=== PATIENT | male | born 1980 | race Caucasian/White ===

== ENCOUNTER → 2016-05-21 | Outpatient (CLI) | payer BC ==
[~2016-05-21] MED LIST: CIPRO 500MG TA500 MG PO; FISH OIL 1000MG1 CAP PO; FLOMAX 0.40.4 MG/CAP PO; FLONASEALLERGY NS; GLUCOPHAGE1000 MG PO; JANUVIA 100MG100 MG PO; NORCO 325 MG-51 TAB PO; OMEGA-31 SGL PO; PERCOCET 325 MG1 TA2 PO; UROCIT-K 5540 MG/TAB PO; ZOCOR 10MG10 MG PO
== END ==
LOC: COL.RAD 09:14
DX: N20.0 Calculus of kidney (principal)

== ENCOUNTER → 2016-05-25 | Day surgery (SDC) | payer BC ==
[~2016-05-25] VITALS: Ht 175.3 cm; Wt 126.3 kg
[2016-05-25] VITALS (7 sets, daily range): BP systolic 124–153; BP diastolic 72–97; PULSE 76–92; TEMP 97.6–97.7
== END ==
LOC: SDCO 11:35
DX: N20.0 Calculus of kidney (principal); R10.12 Left upper quadrant pain; R31.0 Gross hematuria; E11.9 Type 2 diabetes mellitus without complications; F17.210 Nicotine dependence, cigarettes, uncomplicated
CPT/HCPCS: C1769; C1894; C2617; J0690; J1100; J2704; J3010; J7030; Q9967

== ENCOUNTER → 2016-06-11 | Outpatient (CLI) | payer BC | LOC: COL.RAD 07:30 | DX: N20.0 Calculus of kidney (principal) ==

== ENCOUNTER 2016-06-24 12:13 | Day surgery (SDC) | payer BC ==
[~2016-06-24] VITALS: Ht 175.3 cm; Wt 122.4 kg
[~2016-06-24 12:13] MED LIST changes: -FLOMAX 0.40.4 MG/CAP PO; -PERCOCET 325 MG1 TA2 PO; -UROCIT-K 5540 MG/TAB PO
[2016-06-24] MEDS ORDERED: FLOMAX 0.40.4 MG/CAP PO (12:48)
[2016-06-24] MEDS ORDERED: UROCIT-K 5540 MG/TAB PO (12:49)
[2016-06-24 13:15] VITALS: BP 126/82; PULSE 80; TEMP 98.2
[2016-06-24 17:33] VITALS: BP 144/92; PULSE 84; TEMP 98
[2016-06-25] MEDS ORDERED: PERCOCET 325 MG1 TA2 PO (07:57)
== END 2016-06-24 19:03 | disposition home or self-care (01) ==
LOC: SDCO 12:13 → SURG 17:25 → SDCO 19:03
DX: N20.0 Calculus of kidney (principal); E11.9 Type 2 diabetes mellitus without complications; Z79.84 Long term (current) use of oral hypoglycemic drugs; F17.210 Nicotine dependence, cigarettes, uncomplicated
CPT/HCPCS: OP; C1769; C1894; J0690; J1100; J1170; J1885; J1940; J2270; J2405; J2704; J3010; J7030

== ENCOUNTER 2016-06-24 21:08 | Observation (INO) | payer BC ==
[~2016-06-24 21:08] MED LIST changes: +FLOMAX 0.40.4 MG/CAP PO; +UROCIT-K 5540 MG/TAB PO
[2016-06-24 22:04] VITALS: BP 152/85; PULSE 81
[2016-06-24 22:34] VITALS: BP 125/71; PULSE 73
[2016-06-24 23:34] VITALS: BP 109/52; PULSE 67
[2016-06-25 01:00] VITALS: BP 113/58; PULSE 76
[2016-06-25 04:43] VITALS: BP 101/56; PULSE 59
[2016-06-25] MEDS ORDERED: PERCOCET 325 MG1 TA2 PO (07:57)
== END 2016-06-25 08:30 | disposition home or self-care (01) ==
LOC: SURG 21:08
DX: G89.18 Other acute postprocedural pain (principal); E11.9 Type 2 diabetes mellitus without complications; Z79.84 Long term (current) use of oral hypoglycemic drugs; F17.210 Nicotine dependence, cigarettes, uncomplicated
CPT/HCPCS: G0378; G0379; J2270

== ENCOUNTER 2016-07-03 10:14 | Day surgery (SDC) | payer BC ==
[~2016-07-03] VITALS: Ht 175.3 cm; Wt 120.1 kg
[~2016-07-03 10:14] MED LIST changes: +PERCOCET 325 MG1 TA2 PO
[2016-07-03 11:08] VITALS: BP 126/85; PULSE 74; TEMP 98.4
[2016-07-03 14:30] VITALS: BP 121/59; PULSE 70; TEMP 97.5
[2016-07-03 14:45] VITALS: BP 151/77; PULSE 63
[2016-07-03 15:00] VITALS: BP 135/69; PULSE 67
== END 2016-07-03 15:10 | disposition home or self-care (01) ==
LOC: SDCO 10:14
DX: N20.0 Calculus of kidney (principal); R10.12 Left upper quadrant pain; E11.9 Type 2 diabetes mellitus without complications; Z79.84 Long term (current) use of oral hypoglycemic drugs; F17.210 Nicotine dependence, cigarettes, uncomplicated
CPT/HCPCS: C1769; J0690; J1100; J1885; J1940; J2405; J2704; J3010; J7030; Q9967

== ENCOUNTER 2021-07-23 11:47 | Day surgery (SDC) | payer BC ==
[~2021-07-23] VITALS: Ht 175.3 cm; Wt 119.6 kg
[2021-07-23] MEDS ORDERED: PRIL40 PO (12:51)
[2021-07-23] MEDS ORDERED: PRINIVIL20 MG PO (12:51)
[2021-07-23] MEDS ORDERED: ZYLOPRIM 100MG100 MG PO (12:52)
[2021-07-23] MEDS ORDERED: GLUCOTROL 5M5 MG/TAB PO (12:52)
[2021-07-23] MEDS ORDERED: OZEMPIC0.25 MG/0. SQ (12:53)
[2021-07-23] MEDS ORDERED: NORCO 325 MG-51 TAB PO (12:53)
[2021-07-23 13:25] VITALS: BP 126/69; PULSE 85; TEMP 98.1
[2021-07-23 16:00] VITALS: BP 112/65; PULSE 81; TEMP 97.4
--- NOTE | 2021-07-23 16:00 | NUR ---
PT TO BAY 5 FROM [place]. RECEIVED REPORT FROM MUSIC COORDINATOR AND HOTEL CONCIERGE. VS OBTAINED. PT DENIED ANY NEEDS AT THIS TIME. CALL LIGHT WITHIN REACH. WILL CONTINUE TO MONITOR PT. BROTHER AT BEDSIDE.
[2021-07-23 16:15] VITALS: BP 112/69; PULSE 87
--- NOTE | 2021-07-23 16:15 | NUR ---
PT CONTINUES TO DENY AND PAIN OR DISCOMFORT AT THIS TIME. WILL CONTINUE TO MONITOR PT.
--- NOTE | 2021-07-23 16:20 | NUR ---
PT UP TO RESTROOM. VOIDED WITHOUT DIFFICULTY. IV DC'D AT THIS TIME. PT TOLERATED WELL.
--- NOTE | 2021-07-23 16:30 | NUR ---
DISCHARGE EDUCATION COMPLETED WITH PT AND HIS BROTHER. VERBALIZED UNDERSTANDING OF HOME AND FOLLOW UP CARE. ALL QUESTIONS ANSWERED. DISCHARGE PAPERWORK GIVEN TO PT. STRAINER AND SPECIMEN CONTAINER SENT HOME WITH PT.
--- NOTE | 2021-07-23 16:45 | NUR ---
PT OFF UNIT PER WHEELCHAIR. PT DISCHARGE TO HOME WITH BROTHER PER PERSONAL VEHICLE.
== END 2021-07-23 16:45 | disposition home or self-care (01) ==
LOC: SDCO 11:47
DX: N20.0 Calculus of kidney (principal); F17.210 Nicotine dependence, cigarettes, uncomplicated
CPT/HCPCS: J0690; J1100; J1885; J2405; J2704; J3010; J7120

== ENCOUNTER 2021-07-24 14:43 | Day surgery (SDC) | payer BC ==
[~2021-07-24] VITALS: Ht 175.3 cm; Wt 118.2 kg
[~2021-07-24 14:43] MED LIST changes: +GLUCOTROL 5M5 MG/TAB PO; +OZEMPIC0.25 MG/0. SQ; +PRIL40 PO; +PRINIVIL20 MG PO; +ZYLOPRIM 100MG100 MG PO
--- NOTE | 2021-07-24 15:30 | NUR ---
PT RATES PAIN 4/10. WILL CONTINUE TO MONITOR PT.
[2021-07-24 15:33] VITALS: BP 150/79; PULSE 80; TEMP 98.2
--- NOTE | 2021-07-24 16:17 | NUR ---
PT RATES PAIN 6/10. 2MG MORPHINE GIVEN IV. PT C/O OF NAUSEA. ZOFRAN 4MG IV GIVEN.
--- NOTE | 2021-07-24 16:55 | NUR ---
PT RATES PAIN AT 6/10. STATES NAUSEA IS A LITTLE BETTER. WILL CONTINUE TO MONITOR PT.
[2021-07-24 19:15] VITALS: BP 120/64; PULSE 85
--- NOTE | 2021-07-24 19:15 | NUR ---
PATIENT ARRIVED TO ROOM ON DAY SHIFT AND IMMEDIATELY AMBULATED TO BATHROOM TO VOID. NO C/O PAIN OR NAUSEA. POST OP IV FLUIDS INFUSING INTO RIGHT WRIST. LIQUIDS/FOOD AT BEDSIDE. VSS. HEAD TO TOE ASSESSMENT COMPLETE. AT BEDSIDE. CALL LIGHT IN REACH.
[2021-07-24 19:30] VITALS: BP 125/67; PULSE 81
[2021-07-24 20:00] VITALS: BP 114/60; PULSE 78; TEMP 98.9
--- NOTE | 2021-07-24 20:05 | NUR ---
PATIENT MEET DISCHARGE CRITERIA AND ASKING TO GO HOME. PATIENT HAS VOIDED, TOLERATING FOOD/DRINK, AND PAIN MANAGED. AT BEDSIDE. DC'D RIGHT WRIST IV, COVERED SITE WITH GAUZE & COBAN. GAVE DISCHARGE INSTRUCTIONS. PATIENT TO CALL OFFICE TO SCHEDULE F/U APT. NO QUESTIONS/CONCERNS. PATIENT IS DRESSED, PACKED AND DISCHARGED VIA AMBULATORY TO PERSONAL VEHICLE.
== END 2021-07-24 20:05 | disposition home or self-care (01) ==
LOC: SDCO 14:43 → SURG 19:23 → SDCO 20:05
DX: N13.2 Hydronephrosis with renal and ureteral calculous obstruction (principal); Z79.84 Long term (current) use of oral hypoglycemic drugs; F17.290 Nicotine dependence, other tobacco product, uncomplicated
CPT/HCPCS: OP; C1769; C2617; J0690; J1100; J1885; J2270; J2405; J2704; J3010; Q9967